=== PATIENT | female | born 1990 | race Asian ===

== ENCOUNTER → 2016-10-28 | Outpatient (CLI) | payer MEDICAID ==
[~2016-10-28] MED LIST: GLUCOPHAGE500 MG PO; PERCOCET 5-3251 EACH PO; PRENATAL 1+1)(P1 TAB PO; PREVACID15 MG PO
== END | disposition disaster alternative care site (69) ==
LOC: GRAD 10-18 14:00
DX: H93.19 Tinnitus, unspecified ear (principal); H53.8 Other visual disturbances